=== PATIENT | male | born 1980 | race Two or more races ===

== ENCOUNTER 2016-12-19 20:04 | Emergency (ER) | payer BC ==
[~2016-12-19] VITALS: Ht 182.9 cm; Wt 90.0 kg
[2016-12-19] MEDS ORDERED: GABAPENTIN 300MG CAPSULE PO ONE (21:30)
[2016-12-19 21:44] LABS: BASOPHILS % 0.4 % (0.0-2.0); EOSINOPHILS % 0.2 % (0.0-5.0); HEMATOCRIT. 44.7 % (42.0-52.0); HEMOGLOBIN. 15.7 g/dL (14.0-18.0); INR 1.1; LYMPHOCYTES % 27.5 % (20.0-50.0); MEAN CORPUSCULAR HEMOGLOBIN 30.9 pg (28.0-32.0); MEAN CORPUSCULAR VOLUME 88.1 fL (80.0-94.0); MEAN PLATELET VOLUME 7.5 fl (7.4-10.4); MONOCYTES % 9.2 % (2.0-8.0); NEUTROPHILS % 62.7 % (40.0-76.0); PLATELET 261 x1000/uL (130-400); PROTHROMBIN TIME 11.1 sec (9.4-11.6); RED BLOOD CELL COUNT 5.08 mill/uL (4.7-6.1); RED CELL DISTRIBUTION WIDTH 13.6 % (11.6-14.6)
[2016-12-19 21:54] LABS: CARBON DIOXIDE 27 mEq/L (21-32); CHLORIDE 105 mEq/L (98-107); ETHANOL BLOOD < 10 mg/dL; TROPONIN I < 0.02 ng/mL (0.00-0.04)
[2016-12-19 22:54] LABS: CLARITY URINE CLEAR (CLEAR); COLOR URINE YELLOW (YELLOW); GLUCOSE URINE NEGATIVE (NEGATIVE); KETONES URINE 1+ (NEGATIVE); LEUKOCYTE ESTERASE URINE NEGATIVE (NEGATIVE); NITRITE URINE NEGATIVE (NEGATIVE); OCCULT BLOOD URINE NEGATIVE (NEGATIVE); PH URINE 5.5 (4.5-8.0); PROTEIN URINE NEGATIVE (NEGATIVE); SPECIFIC GRAVITY URINE 1.028 (1.005-1.030)
[2016-12-19 23:05] LABS: *AMPHETAMINES SCREEN URINE NEGATIVE (NEGATIVE); *BARBITURATES SCREEN URINE NEGATIVE (NEGATIVE); *BENZODIAZEPINES SCREEN URINE NEGATIVE (NEGATIVE); *COCAINE SCREEN URINE NEGATIVE (NEGATIVE); CANNABINOID URINE SCREEN NEGATIVE (NEGATIVE); METHADONE URINE SCREEN NEGATIVE (NEGATIVE); OPIATES URINE SCREEN NEGATIVE (NEGATIVE); PHENCYCLIDINE URINE SCREEN NEGATIVE (NEGATIVE)
[2016-12-19 23:25] VITALS: BP 127/74
== END 2016-12-19 23:44 | disposition home or self-care (01) ==
LOC: ER 20:42
DX: G62.9 Polyneuropathy, unspecified (principal)
CPT/HCPCS: 36415; 70450; 80053; 80305; 81003; 84443; 84484; 85025; 85610; 93005; 99285; G0482; Z7610

== ENCOUNTER 2017-07-31 03:11 | Emergency (ER) | payer BC, MEDICAID ==
[~2017-07-31] VITALS: Ht 182.9 cm; Wt 95.0 kg
[2017-07-31] MEDS ORDERED: DIFL500T PO (04:07)
[2017-07-31] MEDS ORDERED: GABA-531 PO (04:07)
[2017-07-31 07:06] LABS: CHLORIDE 104 mEq/L (98-107)
[2017-07-31 07:12] LABS: ETHANOL BLOOD < 10 mg/dL
[2017-07-31 07:13] LABS: CLARITY URINE CLEAR (CLEAR); COLOR URINE YELLOW (YELLOW); KETONES URINE 1+ (NEGATIVE); LEUKOCYTE ESTERASE URINE NEGATIVE (NEGATIVE); NITRITE URINE NEGATIVE (NEGATIVE); OCCULT BLOOD URINE NEGATIVE (NEGATIVE); PH URINE 5.5 (4.5-8.0); PROTEIN URINE NEGATIVE (NEGATIVE); SPECIFIC GRAVITY URINE 1.011 (1.005-1.030); UROBILINOGEN URINE 0.2 E.U./dL (0.2-1.0)
[2017-07-31 07:29] LABS: EOSINOPHILS % 4.1 % (0.0-5.0); HEMATOCRIT. 43.9 % (42.0-52.0); HEMOGLOBIN. 15.6 g/dL (14.0-18.0); MEAN CORPUSCULAR VOLUME 87.3 fL (80.0-94.0); MEAN PLATELET VOLUME 8.2 fl (7.4-10.4); MONOCYTES % 11.9 % (2.0-8.0); PLATELET 226 x1000/uL (130-400); RED BLOOD CELL COUNT 5.03 mill/uL (4.7-6.1); RED CELL DISTRIBUTION WIDTH 13.1 % (11.6-14.6)
[2017-07-31 07:49] LABS: *BARBITURATES SCREEN URINE NEGATIVE (NEGATIVE); CANNABINOID URINE SCREEN NEGATIVE (NEGATIVE); PHENCYCLIDINE URINE SCREEN NEGATIVE (NEGATIVE)
[2017-07-31 07:50] LABS: *AMPHETAMINES SCREEN URINE NEGATIVE (NEGATIVE); *BENZODIAZEPINES SCREEN URINE NEGATIVE (NEGATIVE); *COCAINE SCREEN URINE NEGATIVE (NEGATIVE); METHADONE URINE SCREEN NEGATIVE (NEGATIVE); OPIATES URINE SCREEN NEGATIVE (NEGATIVE)
[2017-07-31 08:07] VITALS: BP 120/65
== END 2017-07-31 09:11 | disposition home or self-care (01) ==
LOC: ER 03:11
DX: R20.2 Paresthesia of skin (principal); G62.9 Polyneuropathy, unspecified
CPT/HCPCS: 36415; 70450; 71045; 80053; 80305; 81003; 83735; 85025; 99285; G0482

== ENCOUNTER 2022-04-03 08:33 | Inpatient (IN) | payer MEDICARE, MEDICAID ==
[~2022-04-03] VITALS: Ht 185.4 cm; Wt 78.5 kg
[~2022-04-03 08:33] MED LIST: DIFL500T PO; GABA-532 PO
[2022-04-03] MEDS ORDERED: IOHEXOL-350 100 ML BOTTLE ONE (09:44)
[2022-04-03 09:51] LABS: BASOPHILS % 0.6 % (0.0-2.0); EOSINOPHILS % 0.5 % (0.0-5.0); HEMATOCRIT. 43.7 % (42.0-52.0); HEMOGLOBIN. 15.2 g/dL (14.0-18.0); LYMPHOCYTES % 31.6 % (20.0-50.0); MEAN CORPUSCULAR HEMOGLOBIN 31.8 pg (28.0-32.0); MEAN CORPUSCULAR VOLUME 91.7 fL (80.0-94.0); MEAN PLATELET VOLUME 7.8 fl (7.4-10.4); MONOCYTES % 6.9 % (2.0-8.0); NEUTROPHILS % 60.4 % (40.0-76.0); PLATELET 239 x1000/uL (130-400); RED BLOOD CELL COUNT 4.77 mill/uL (4.7-6.1); RED CELL DISTRIBUTION WIDTH 13.6 % (11.6-14.6)
[2022-04-03 10:04] LABS: CHLORIDE 107 mEq/L (98-107)
[2022-04-03 10:07] LABS: CLARITY URINE CLEAR (CLEAR); COLOR URINE YELLOW (YELLOW); KETONES URINE NEGATIVE (NEGATIVE); LEUKOCYTE ESTERASE URINE TRACE (NEGATIVE); NITRITE URINE POSITIVE (NEGATIVE); OCCULT BLOOD URINE NEGATIVE (NEGATIVE); PROTEIN URINE NEGATIVE (NEGATIVE); SPECIFIC GRAVITY URINE 1.016 (1.005-1.030); UROBILINOGEN URINE 0.2 E.U./dL (0.2-1.0)
[2022-04-03 10:11] LABS: ETHANOL BLOOD < 10 mg/dL
[2022-04-03] MEDS ORDERED: ASPIRIN 325MG EC TABLET PO ONE (10:30)
[2022-04-03 10:34] LABS: *AMPHETAMINES SCREEN URINE NEGATIVE (NEGATIVE); *BARBITURATES SCREEN URINE NEGATIVE (NEGATIVE); *BENZODIAZEPINES SCREEN URINE NEGATIVE (NEGATIVE); *COCAINE SCREEN URINE NEGATIVE (NEGATIVE); CANNABINOID URINE SCREEN NEGATIVE (NEGATIVE); METHADONE URINE SCREEN NEGATIVE (NEGATIVE); OPIATES URINE SCREEN NEGATIVE (NEGATIVE); PHENCYCLIDINE URINE SCREEN NEGATIVE (NEGATIVE)
[2022-04-03] MEDS ORDERED: DOCUSATE SODIUM 100MG CAPSULE PO PRN (12:00)
[2022-04-03] MEDS ORDERED: ONDANSETRON HCL 4MG/2ML INJ IV PRN (12:00)
[2022-04-03] MEDS ORDERED: MAGNESIUM/ALUMINUM HYDROXIDE/SIMETHICONE 30ML UDC PO PRN (12:00)
[2022-04-03] MEDS ORDERED: ACETAMINOPHEN 325MG TABLET PO PRN (12:00)
[2022-04-03] MEDS ORDERED: GUAIFENESIN 200MG/10ML SUGAR FREE UDC PO PRN (12:00)
[2022-04-03] MEDS ORDERED: TRAMADOL 50MG TABLET PO PRN (12:00)
[2022-04-03] MEDS ORDERED: NALOXONE HCL 0.4MG/ML VIAL IV PRN (12:15)
[2022-04-03] MEDS ORDERED: CEFTRIAXONE 1 G PREMIX 50 ML IV SCH (12:15)
[2022-04-03] MEDS: MULTIVITAMINS,THER W-MINERALS TABLET PO SCH (12:29)
[2022-04-03] MEDS: SODIUM CHLORIDE 0.9% 1,000 ML IV SCH (12:29)
[2022-04-03] MEDS: GABAPENTIN 300MG CAPSULE PO SCH ×2 (15:03→21:09)
[2022-04-03 18:58] VITALS: BP 112/74
[2022-04-03 20:00] VITALS: BP 107/63
[2022-04-03 21:50] LABS: HEPATITIS B SURFACE ANTIGEN NEGATIVE
[2022-04-04] VITALS: BP_SYST 105; BP_SYST 110; BP_SYST 120; BP_DIAS 73; BP_DIAS 80; BP_DIAS 81
[2022-04-04] MEDS: SODIUM CHLORIDE 0.9% 1,000 ML IV SCH (01:06)
[2022-04-04 04:00] VITALS: BP 111/78
[2022-04-04] MEDS: GABAPENTIN 300MG CAPSULE PO SCH ×3 (05:44→21:09)
[2022-04-04 07:00] LABS: EOSINOPHILS % 1.5 % (0.0-5.0); HEMATOCRIT. 47.3 % (42.0-52.0); HEMOGLOBIN. 16.2 g/dL (14.0-18.0); LYMPHOCYTES % 55.3 % (20.0-50.0); MEAN CORPUSCULAR HEMOGLOBIN 31.6 pg (28.0-32.0); MEAN CORPUSCULAR VOLUME 92.6 fL (80.0-94.0); MEAN PLATELET VOLUME 8.1 fl (7.4-10.4); MONOCYTES % 9.1 % (2.0-8.0); NEUTROPHILS % 33.1 % (40.0-76.0); PLATELET 237 x1000/uL (130-400); RED BLOOD CELL COUNT 5.11 mill/uL (4.7-6.1); RED CELL DISTRIBUTION WIDTH 13.8 % (11.6-14.6)
[2022-04-04 08:00] VITALS: BP 114/96
[2022-04-04 08:05] LABS: CHLORIDE 108 mEq/L (98-107)
[2022-04-04 08:19] LABS: HDL CHOLESTEROL 47 mg/dL (40-59); LDL CHOLESTEROL 109 mg/dL (5-100)
[2022-04-04] MEDS: NITROFURANTOIN 100MG M/M CAPSULE PO SCH ×2 (10:17→21:09)
[2022-04-04] MEDS: MULTIVITAMINS,THER W-MINERALS TABLET PO SCH (10:17)
[2022-04-04 12:00] VITALS: BP 127/79
[2022-04-04 16:00] VITALS: BP 109/78
[2022-04-04 20:00] VITALS: BP 96/60
[2022-04-05] VITALS: BP 94/61
[2022-04-05 04:00] VITALS: BP_SYST 117; BP_SYST 122; BP_SYST 99; BP_DIAS 65; BP_DIAS 82; BP_DIAS 88
[2022-04-05] MEDS: GABAPENTIN 300MG CAPSULE PO SCH ×5 (05:08→20:46)
[2022-04-05 08:02] VITALS: BP 110/78
[2022-04-05] MEDS: MULTIVITAMINS,THER W-MINERALS TABLET PO SCH (08:58)
[2022-04-05] MEDS: NITROFURANTOIN 100MG M/M CAPSULE PO SCH ×2 (08:58→20:45)
[2022-04-05 12:00] VITALS: BP 122/80
[2022-04-05 16:00] VITALS: BP 126/68
[2022-04-05 20:00] VITALS: BP 106/66
[2022-04-06] VITALS: BP 103/72
[2022-04-06 04:00] VITALS: BP 97/71
[2022-04-06] MEDS: GABAPENTIN 300MG CAPSULE PO SCH ×3 (05:23→15:01)
[2022-04-06 08:00] VITALS: BP 117/78
[2022-04-06] MEDS: MULTIVITAMINS,THER W-MINERALS TABLET PO SCH (09:00)
[2022-04-06] MEDS: NITROFURANTOIN 100MG M/M CAPSULE PO SCH (09:00)
[2022-04-06 12:00] VITALS: BP 120/75
[2022-04-06 15:16] VITALS: BP 134/93
== END 2022-04-06 15:35 | DRG 65 ==
LOC: ER 08:33 → EDBEDREQ 09:30 → EDBEDREQTM 09:30 → EDBEDREQSVC 09:30 → MICUSO 10:22 → EDBEDREQTM 10:25 → EDBEDREQ 10:25 → 7EST 18:20
PROVIDERS: ADMIT Hospitalist; ATTEND Hospitalist
DX: I63.9 Cerebral infarction, unspecified (principal); N39.0 Urinary tract infection, site not specified; R55 Syncope and collapse; G62.9 Polyneuropathy, unspecified
CPT/HCPCS: 36415; 70496; 70498; 71045; 80053; 80061; 80305; 80320; 81003; 83605; 85025; 86803; 87340; 93005; 93306; 93970; 97162; 97166; 99291; J0696; Q9967; G0480

== ENCOUNTER 2022-04-24 21:12 | Emergency (ER) | payer MEDICARE, MEDICAID ==
[~2022-04-24] VITALS: Ht 182.9 cm; Wt 80.0 kg
[~2022-04-24 21:12] MED LIST changes: -DIFL500T PO
[2022-04-24 21:27] VITALS: BP 112/79
[2022-04-24 23:07] LABS: EOSINOPHILS % 3.5 % (0.0-5.0); HEMATOCRIT. 47.6 % (42.0-52.0); HEMOGLOBIN. 16.3 g/dL (14.0-18.0); LYMPHOCYTES % 56.7 % (20.0-50.0); MEAN CORPUSCULAR HEMOGLOBIN 31.2 pg (28.0-32.0); MEAN CORPUSCULAR VOLUME 91.1 fL (80.0-94.0); MEAN PLATELET VOLUME 7.8 fl (7.4-10.4); MONOCYTES % 8.5 % (2.0-8.0); NEUTROPHILS % 30.3 % (40.0-76.0); PLATELET 245 x1000/uL (130-400); RED BLOOD CELL COUNT 5.23 mill/uL (4.7-6.1); RED CELL DISTRIBUTION WIDTH 13.4 % (11.6-14.6)
[2022-04-25 01:19] LABS: CHLORIDE 107 mEq/L (98-107); ETHANOL BLOOD < 10 mg/dL
== END 2022-04-25 05:02 | disposition home or self-care (01) ==
LOC: ER 21:12
DX: G62.9 Polyneuropathy, unspecified (principal); R94.31 Abnormal electrocardiogram [ECG] [EKG]
CPT/HCPCS: 36415; 71045; 80053; 80320; 85025; 93005; 99285; G0480